=== PATIENT | male | born 1990 | race Caucasian/White ===

== ENCOUNTER → 2018-03-05 | Outpatient (CLI) | payer OTHER ==
[~2018-03-05] VITALS: Ht 180.3 cm; Wt 74.8 kg
[~2018-03-05] MED LIST: ASPIRIN EC325 M1 PO; IBUPROFEN 200200 M1 PO
--- NOTE | ~2018-03-05 | HPC ---
[facility] [address] [place] [address] PAIN MANAGEMENT CONSULTATION Name: HILARIA MUKHERJEE ALAN [facility] [id number] Admission: 03/05/18 Attend Phys: Sam Lyles DO Discharge: Date of : 89 Report #: [id number] THIS REPORT FOR: //name// CC: Srini Lyles DATE OF SERVICE: 03/05/2018 The patient is a 27-year-old gentleman seen in consultation at the request Dr. Sosa for evaluation of pain, right groin for 7 years. The patient has been worked up by General Surgery (Dr. Pacheco) no right inguinal herniorrhaphy was found. He has taken occasional anti-inflammatories and chiropractic manipulation for ongoing right groin pain that is exacerbated with standing, walking and pretty much any activity. Gets some relief if he is sitting or recumbent. He notes pain is intermittent, burning, shooting, aching, throbbing, sharp, stabbing, tender, rates anywhere from 3-10 on a VAS. Denies antecedent trauma and overuse. Again, notes pain has been present off and on for about 7 years. Denies any antecedent trauma. REVIEW OF SYSTEMS: Complete review of systems attached to chart and gone over with the patient. He is single, seen in the company of his significant other and their child. He smokes 1 pack of cigarettes a day, which he claims he has for 15 years. Does not drink alcohol to excess. History of some reactive airway disease, has used metered dose rescue inhaler. 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 Pain impact score is 22/70. PHYSICAL EXAMINATION: Reveals a 5-foot 11-inch, 165-pound gentleman. BMI is 23 kilograms per meter squared. Blood pressure 144/93, pulse 77, respirations are 16. Alert and oriented to person, place and time, judged to be a reasonable historian. Cervical range of motion is full. Upper extremity strength is preserved. Heart is regular rate in rhythm without murmur. Lungs are clear to auscultation. Gait is generally tandem. Lower extremity strength is preserved. Straight leg raise negative. Patellar and Achilles reflexes are preserved. Very tender over the right ilioinguinal area. No palpable hernias noted. No abdominal rebound or guarding is noted. No costovertebral angle tenderness is noted. Range of motion of the lumbar spine is good. DIAGNOSTIC FINDINGS: Include an MRI of the abdomen from 01/31/2018 noting relatively benign abdominal contents, does reference L5-S1 5 mm HNP, though does not correlate with L5 radicular symptoms. 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 [address] [address] PAIN MANAGEMENT CONSULTATION Name: HILARIA MUKHERJEE MARTI Room #: REG KYLE Knowles#: [id number] Admission: 03/05/18 Attend Phys: Sam Lyles DO Discharge: Date of : 89 Report #: [id number] RECOMMENDATION: Continue NSAID [id number], ice to the area. We will plan on moving forward with right ilioinguinal nerve block at next visit. Discharged in good and stable condition. By: [id number] Sam Lyles DO /nt
[2018-03-05 10:05] VITALS: BP 144/90
== END ==
LOC: PAIN 02-26 11:48
DX: M79.2 Neuralgia and neuritis, unspecified (principal); F17.200 Nicotine dependence, unspecified, uncomplicated

== ENCOUNTER → 2018-03-09 | Outpatient (CLI) | payer OTHER ==
[~2018-03-09] VITALS: Ht 180.3 cm; Wt 74.8 kg
--- NOTE | ~2018-03-09 | HPC ---
[facility] [place] [address] PAIN MANAGEMENT CONSULTATION Name: HILARIA MUKHERJEE Room #: REG KYLE Knowles#: [id number] Admission: 03/09/18 Attend Phys: Sam Lyles DO Discharge: Date of : 89 Report #: [id number] THIS REPORT FOR: //name// CC: Srini Lyles DATE OF SERVICE: 03/09/2018 PAIN CLINIC NOTE The patient is a 27-year-old gentleman seen in consultation on 03/05/2018. Diagnosed with right ilioinguinal neuralgia. Pain has been idiopathically present for about [address] of the abdomen did not show any obvious inguinal hernia. It did pear picker a slight L5-S1 compromise, though it does not correlate with L5 radicular pain pattern. We had sought authorization for right ilioinguinal nerve block, which the patient presents for today. Pain continues to be problematic in the right groin radiating into the testicular area and into the groin, feels like it is "deep in his pelvis." Lower extremity strength is generally preserved. ASSESSMENT: Symptomatic right ilioinguinal neuralgia. PROCEDURE: Right ilioinguinal nerve block. PROCEDURE NOTE: After written informed consent was obtained, the patient was placed in supine position. Skin overlying the anterior superior iliac spine was cleansed with alcohol. Using 25-gauge 2-inch needle, 40 mg triamcinolone plus 5 mL of 0.5% preservative-free bupivacaine plus 5 mL of 1.5% preservative-free Xylocaine with 1:10,000 epinephrine was injected in a fan-goddard fashion covering the ilioinguinal nerve and likely component of the genitofemoral nerve. No paresthesias noted. The patient had good hip flexion strength following the procedure. The patient was asked to report pain score on the hour for the next 3 hours. He will call up the nurse line and leave that score. If he has incremental relief and good relief with the steroid, we will have him simply follow up on an as-needed basis. If he has good incremental relief, but no long-term relief with the steroid, may consider Stimplex guided ilioinguinal nerve block at next visit. Otherwise, we may be left with simply medication management, would consider starting with a membrane stabilizing agent (gabapentin or Lyrica versus Trileptal/Tegretol). Thank you for allowing me to participate in the patient's care. Given that I am [address] [address] PAIN MANAGEMENT CONSULTATION Name: LONNYHILARIA MARTI Room #: REG KYLE Knowles#: [id number] Admission: 03/09/18 Attend Phys: Sam Lyles DO Discharge: Date of : 89 Report #: [id number] leaving the practice area, I may have him follow up with Dr. Nolan Lyles for ongoing management. <ELECTRONICALLY SIGNED> By: Sam Lyles DO 03/12/18 0710 [id number] Sam Lyles DO /nt
[2018-03-09 13:16] VITALS: BP 153/94
== END | disposition home or self-care (01) ==
LOC: PAIN 07:01
DX: G57.81 Other specified mononeuropathies of right lower limb (principal); F17.210 Nicotine dependence, cigarettes, uncomplicated; Z88.0 Allergy status to penicillin; Z88.8 Allergy status to other drugs, medicaments and biological substances